=== PATIENT | female | born 1940 | race Caucasian/White ===

== ENCOUNTER 2025-02-13 09:32 | Outpatient (AMB) | payer OTHER, SELFPAY ==
--- NOTE | 2025-02-13 09:33 | A.OFFVIS_ITS ---
Vital Signs 02/13/25 09:47 Height 5 ft 1 in Weight 148 lb BMI 28.0 BP 124/76 Blood Pressure Location Rt brachial Position Sitting Respiration 16 Pulse 96 Pulse Source Pulse Oximeter Pulse Oximetry (%) 96 Intake Visit Reasons: LE weakness Dermatology Sales Representative Required: No Accompanied by: Daughter Allergies No Known Allergies Allergy (Verified 02/13/25 09:48) Medication List - Last Reconciled 02/13/25 by Ruthann Grayson CNP atorvastatin 20 mg PO DAILY hydrochlorothiazide 12.5 mg PO DAILY levothyroxine 112 mcg PO DAILY lisinopril 2.5 mg PO DAILY metoprolol succinate ER 25 mg PO DAILY HPI Comments Details: Elana is an 85-year-old female patient with past medical history of hypertension, hyperlipidemia, hypothyroidism presenting upon referral for weakness. According to referral notes from November of 2024, she had sustained a mechanical fall at home after which she was admitted to [facility]. She has been walking to the bathroom when her left leg ?gave out on her? and she fell landing on her buttocks. Left knee and hip x-rays have been negative for acute injury but reveal some mild underlying osteoarthritic changes. Unfortunately after hospitalization and subsequent rehabilitation, she had 2 further falls in September of 2024 and was admitted back to [facility] rehab [facility] nursing [facility]. The primary concern for the provider referring this patient seems to be a lack in progression even after rehab to the weakness of her left lower extremity. According to the patient and her daughter today, she continues to have some difficulty with ADLs secondary to her ongoing weakness. While the patient does feel that she has made some progress in her strength, her daughter feels as though her strength has not improved much if at all in her physical therapy team also has some concerns about her steady lack of improvement. She does tell me that in the past she has had a left lower back injury that caused some left lower back/left hip pain. She feels that her left lower extremity has always been slightly more fatigued. She notes that leading up to her initial fall back in the spring, she has been having some difficulty with balance for years. In addition to the weakness, the patient does endorse some difficulties with sensation and does note that after her 3rd fall which led her to her most recent hospitalization, she did have some sensory loss to both feet. She does feel that some of her sensation has returned since this time. 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 Likely physiologic calcifications in the bilateral basal ganglia again seen. No other areas of abnormal parenchymal attenuation or space- occupying lesions (report reviewed only, imaging not available). CT cervical spine 10/13/2024: No evidence of acute bony injuries in the cervical spine. Multilevel degenerative changes in the cervical spine with bilateral neural foraminal narrowing at C4 through 5 and C5 through 6 and moderate central canal stenosis at C4 through C5. [facility] Medical History (Updated 02/13/25 @ 10:40 by Ruthann Grayson CNP) Weakness Difficulty walking Muscle weakness Osteoarthritis Heart failure Hearing loss HLD (hyperlipidemia) Hypothyroidism Lack of coordination Review of Systems Const All systems reviewed & are unremarkable except as noted in HPI and below Neuro Denies Abnormal speech present Physical Exam Const General: cooperative, healthy appearing and no acute distress Orientation/consciousness: oriented to person, oriented to place and oriented to time Neuro General: oriented to person, oriented to place, oriented to time and Unable to assess gait Cranial nerves: Yes CN's II-XII intact bilaterally, Yes Bilaterally intact EOM present and Yes Midline tongue present Speech: No Abnormal speech present Gait exam (Neuro): Unable to assess gait Motor exam (neuro): Abnormal motor strength present (Left bicept -5/5, Left hip, knee, and ankle flexion -4/5) and Other motor observations present Sensory Exam: sensory level loss detected (BLE from mid villarreal down L>R. RUE c8 dermatome ) Deep tendon reflexes (DTR's): Right triceps reflex intensity grade: 2+, Rt Biceps (C5, C6): 2+, Left biceps reflex intensity grade: 2+, Right brachioradialis reflex intensity grade: 2+, Left brachioradialis reflex intensity grade: 2+, Right patellar reflex intensity grade: 3+, Left patellar reflex intensity grade: 3+ and Right ankle reflex intensity grade: 3+ Plantar Reflex Responses: upgoing (positive Babinski): bilateral Coordination: [id number] test normal Assessment & Plan Assessment & Plan (1) Weakness: Code(s): R53.1 - Weakness Category: Medical Plan: . (2) Imbalance: Code(s): R26.89 - Other abnormalities of gait and mobility Category: Medical Plan: . (3) Gait disturbance: Code(s): R26.9 - Unspecified abnormalities of gait and mobility Category: Medical Plan: . Danni Huitron is an 85-year-old female patient with past medical history of hypertension, hyperlipidemia, hypothyroidism presenting upon referral for weakness. Her exam is notable for predominantly left-sided weakness but more pronounced to the left lower extremity than the left upper extremity. She has sensory loss in bilateral lower extremities more pronounced distally. She also has right C8 dermatomal pattern sensory loss. She has no sensory deficit to the face or weakness in the facial area. Cranial nerves are intact. Her reflexes are normal to the upper extremities and brisk in the lower extremities including a bilateral positive Babinski. Her CT of the brain from September showed some chronic lacunar infarcts in the thalamus however otherwise did not show any major territory infarcts. She also had a CT of the cervical spine showing some degenerative changes with possible central canal stenosis. I would like to rule out a cervical myelopathy with a C-spine MRI. Pending results, we could consider other testing such as an EMG study. We will follow up after the cervical spine MRI and make further decisions regarding additional workup if indicated. -c-spine MRI w/o contrast -follow-up after imaging in 1 month Orders: Orders MR cervical spine wo con Today R26.89 - Other abnormalities of gait and mobility, R26.9 - Unspecified abnormalities of gait and mobility, R53.1 - Weakness Coding Level of Care Code New Pt Level 4 (96497) Diagnoses Weakness R53.1 Imbalance R26.89 Gait disturbance R26.9
[2025-02-13 09:47] VITALS: BP 124/76; PULSE 96; RESP 16; O2SAT 96; BMI 28.0
--- OUTSIDE RECORDS SUMMARY | 2025-02-13 10:55 | XMS_ITS | Clinical Summary ---
Author Organization [address] [facility] Address [address] [place] [address] Phone Care Team Providers Care Postdoctoral Scientist Name Role Phone Elder, Aileen Guillory MD Primary Care Provider + Encounters Date Type Department Care Team Description 02/08/2025 Lab Requisition [facility] Lab [address] [place] [phone] Robert Reddy MD Essential (primary) hypertension; Unspecified systolic (congestive) heart failure (CMS/HCC V24, CMS/HCC V28) 01/17/2025 Lab Requisition [facility] Lab [address] [place] [phone] Robert Reddy MD Urinary tract infection, site not specified 01/15/2025 Lab Requisition [facility] Lab [address] [place] [phone] Robert Reddy MD Anemia, unspecified; Other disorders of electrolyte and fluid balance, not elsewhere classified; Magnesium deficiency 01/09/2025 Lab Requisition [facility] Lab [address] [place] [phone] Robert Reddy MD Vitamin D deficiency, unspecified 12/11/2024 Lab Requisition [facility] [address] [place] [phone] Robert Reddy MD Vitamin D deficiency, unspecified; Weakness; Fall on same level from slipping, tripping and stumbling without subsequent striking against object, initial encounter from Last 3 Months Social History Tobacco Use Types Packs/Day Years Used Date Smoking Tobacco: Never Assessed Comments Unknown Sex and Gender Information Value Date Recorded Sex Assigned at Not on file Legal Sex Female 8:20 AM EDT Gender Identity Not on file Sexual Orientation Not on file Plan of Treatment Health Maintenance Due Date Last Done Comments DTaP,Tdap,and Td Vaccines (1 - Tdap) 01/23/1959 Pneumococcal Vaccine: 50+ Years (1 of 1 - PCV) 01/23/1990 Zoster Vaccines (1 of 2) 01/23/1990 RSV Immunization Adult Patients (1 - 1-dose 75+ series) 01/23/2015 Depression Screening 05/02/2024 Cholesterol Screening (Lipid Panel) 08/16/2024 Falls Risk Assessment 08/16/2024 Osteoporosis Screening (Bone Density Screening) 08/16/2024 Social Influencers of Health Screening 08/16/2024 COVID-19 Vaccine (1 - season) 2024 Influenza Vaccine (#1) 2024 Hypertension/CHF/CAD Annual BMP Blood Test 02/08/2026 02/08/2025, 01/15/2025, 12/11/2024, Additional history exists HIB Vaccines Aged Out No longer eligi ble based on patient's age to complete this topic HPV Vaccines Aged Out No longer eligi ble based on patient's age to complete this topic Hepatitis A Vaccines Aged Out No long er eligible based on patient's age to complete this topic Hepatitis B Vaccines Aged Out No long er eligible based on patient's age to complete this topic IPV Vaccines Aged Out No longer eligi ble based on patient's age to complete this topic MMR Vaccines Aged Out No longer eligi ble based on patient's age to complete this topic Meningococcal ACWY Vaccine Aged Out N o longer eligible based on patient's age to complete this topic Meningococcal B Vaccine Aged Out No l onger eligible based on patient's age to complete this topic RSV Immunization Patients Under 20 months Aged Out No longer eligible based on patient's age to complete this topic Varicella Vaccines Aged Out No longer eligible based on patient's age to complete this topic Procedures Procedure Name Priority Date/Time Associated Diagnosis Comments BASIC METABOLIC PANEL Routine 02/08/2025 5:12 AM EDT Essential (primary) hypertension Unspecified systolic (congestive) heart failure (CMS/HCC V24, CMS/HCC V28) COMPLETE BLOOD COUNT Routine 02/08/2025 5:12 AM EDT Essential (primary) hypertension Unspecified systolic (congestive) heart failure (CMS/[facility] V24, CMS/[facility] V28) URINALYSIS WITH REFLEX MICROSCOPIC Routine 01/16/2025 3:00 PM EDT Urinary tract infection, site not specified URINALYSIS WITH REFLEX MICROSCOPIC Routine 01/16/2025 3:00 PM EDT Urinary tract infection, site not specified CULTURE URINE Routine 01/16/2025 3:00 PM EDT Urinary tract infection, site not specified MAGNESIUM Routine 01/15/2025 7:56 AM EDT Anemia, unspecified Other disorders of electrolyte and fluid balance, not elsewhere classified Magnesium deficiency BASIC METABOLIC PANEL Routine 01/15/2025 7:56 AM EDT Anemia, unspecified Other disorders of electrolyte and fluid balance, not elsewhere classified Magnesium deficiency COMPLETE BLOOD COUNT Routine 01/15/2025 7:56 AM EDT Anemia, unspecified Other disorders of electrolyte and fluid balance, not elsewhere classified Magnesium deficiency VITAMIN D 25 HYDROXY Routine 01/09/2025 5:20 AM EDT Vitamin D deficiency, unspecified VITAMIN D 25 HYDROXY Routine 12/11/2024 8:17 AM EDT Vitamin D deficiency, unspecified Weakness Fall on same level from slipping, tripping and stumbling without subsequent striking against object, initial encounter VITAMIN B12 Routine 12/11/2024 8:17 AM EDT Vitamin D deficiency, unspecified Weakness Fall on same level from slipping, tripping and stumbling without subsequent striking against object, initial encounter BASIC METABOLIC PANEL Routine 12/11/2024 8:17 AM EDT Vitamin D deficiency, unspecified Weakness Fall on same level from slipping, tripping and stumbling without subsequent striking against object, initial encounter COMPLETE BLOOD COUNT Routine 12/11/2024 8:17 AM EDT Vitamin D deficiency, unspecified Weakness Fall on same level from slipping, tripping and stumbling without subsequent striking against object, initial encounter from Last 3 Months Results * (ABNORMAL) Complete blood count (02/08/2025 5:12 AM EDT) Only the most recent of3 resultswithin the time period is included. WBC 7.7 4.8 - 10.8 K/mcL LAB HEMETOLOGY METHOD 02/08/2025 8:49 AM [facility] RBC 3.80 3.80 - 4.80 M/mcL LAB HEMETOLOGY METHOD 02/08/2025 8:49 AM [facility] Hemoglobin 11.5 11.5 - 16.0 g/dL LAB HEMETOLOGY METHOD 02/08/2025 8:49 AM [facility] Hematocrit 36.6 35.0 - 47.0 % LAB HEMETOLOGY METHOD 02/08/2025 8:49 AM [facility] MCV 96.6 79.0 - 98.0 FL LAB HEMETOLOGY METHOD 02/08/2025 8:49 AM [facility] MCH 30.3 27.0 - 32.0 pcg LAB HEMETOLOGY METHOD 02/08/2025 8:49 AM [facility] MCHC 31.4(L) 32.0 - 37.0 g/dL LAB HEMETOLOGY METHOD 02/08/2025 8:49 AM [facility] RDW 13.7 11.0 - 15.0 % LAB HEMETOLOGY METHOD 02/08/2025 8:49 AM [facility] Platelets 339 130 - 400 K/mcL LAB HEMETOLOGY METHOD 02/08/2025 8:49 AM [facility] MPV 10.6 7.0 - 11.0 FL LAB HEMETOLOGY METHOD 02/08/2025 8:49 AM EDT [facility] NRBC 0.0 <1.0 % LAB HEMETOLOGY METHOD 02/08/2025 8:49 AM EDT [facility] NRBC Absolute 0.00 <0.10 K/mcL LAB HEMETOLOGY METHOD 02/08/2025 8:49 AM EDT [facility] Blood Venous blood specimen / Unknown Venipuncture / Unknown 02/08/2025 5:12 AM EDT 02/08/2025 8:27 AM EDT us Robert Reddy MD LAB BLOOD ORDERABLES Final Resu lt [facility] [address] [place] [address], [place] [phone] * (ABNORMAL) Basic metabolic panel (02/08/2025 5:12 AM EDT) Only the most recent of3 resultswithin the time period is included. Sodium 141 133 - 145 mmol/L LAB CHEMISTRY METHOD 02/08/2025 9:15 AM [facility] Potassium 5.2 3.5 - 5.5 mmol/L LAB CHEMISTRY METHOD 02/08/2025 9:15 AM [facility] Chloride 106 96 - 110 mmol/L LAB CHEMISTRY METHOD 02/08/2025 9:15 AM [facility] CO2 30 21 - 32 mmol/L LAB CHEMISTRY METHOD 02/08/2025 9:15 AM [facility] Anion Gap 5 3 - 11 LAB CHEMISTRY METHOD 02/08/2025 9:15 AM [facility] Glucose 93 70 - 100 mg/dL LAB CHEMISTRY METHOD 02/08/2025 9:15 AM [facility] BUN 17 5 - 25 mg/dL LAB CHEMISTRY METHOD 02/08/2025 9:15 AM EDT [facility] Creatinine 0.48(L) 0.50 - 1.10 mg/dL LAB CHEMISTRY METHOD 02/08/2025 9:15 AM [facility] eGFR 93 >=60 mL/min/1. 73m2 LAB CHEMISTRY METHOD 02/08/2025 9:15 AM [facility] Comment:Calculation based on the Chronic Kidney Disease Epidemiology Collaboration (CKD-EPI) equation refit without adjustment for race. BUN/Creatinine Ratio 35.4 LAB CHEMISTRY METHOD 02/08/2025 9:15 AM [facility] Calcium 9.2 8.5 - 10.5 mg/dL LAB CHEMISTRY METHOD 02/08/2025 9:15 AM [facility] Blood Venous blood specimen / Unknown Venipuncture / Unknown 02/08/2025 5:12 AM EDT 02/08/2025 8:27 AM EDT us Robert Reddy MD LAB BLOOD ORDERABLES Final Resu lt [facility] [address] [place] [address], * (ABNORMAL) Urinalysis with reflex microscopic (01/16/2025 3:00 PM EDT) Specific [place] Urine 1.018 1.003 - 1.030 LAB URINALYSIS - AUTOMATED METHOD 01/17/2025 9:15 AM [facility] pH, Urine 7.0 5.0 - 8.0 pH LAB URINALYSIS - AUTOMATED METHOD 01/17/2025 9:15 AM [facility] Leukocytes, Urine Trace(A) Negative LAB URINALYSIS - AUTOMATED METHOD 01/17/2025 9:15 AM [facility] Nitrite, Urine Negative Negative LAB URINALYSIS - AUTOMATED METHOD 01/17/2025 9:15 AM [facility] Protein, Urine Negative <=Trace mg/dL LAB URINALYSIS - AUTOMATED METHOD 01/17/2025 9:15 AM [facility] Glucose, Urine Negative Negative mg/dL LAB URINALYSIS - AUTOMATED METHOD 01/17/2025 9:15 AM [facility] Ketones, Urine Negative Negative mg/dL LAB URINALYSIS - AUTOMATED METHOD 01/17/2025 9:15 AM [facility] Urobilinogen, Urine 0.2 0.2 - 1.0 mg/dL LAB URINALYSIS - AUTOMATED METHOD 01/17/2025 9:15 AM [facility] Bilirubin, Urine Negative Negative LAB URINALYSIS - AUTOMATED METHOD 01/17/2025 9:15 AM [facility] Blood, Urine Negative Negative LAB URINALYSIS - AUTOMATED METHOD 01/17/2025 9:15 AM [facility] RBC, Urine 2.4 0 - 4 /HPF LAB URINALYSIS - AUTOMATED METHOD 01/17/2025 9:15 AM [facility] WBC, Urine 0.3 0 - 4 /HPF LAB URINALYSIS - AUTOMATED METHOD 01/17/2025 9:15 AM [facility] Squamous Epithelial, Urine 13 0 - 60 /LPF LAB URINALYSIS - AUTOMATED METHOD 01/17/2025 9:15 AM [facility] Bacteria, Urine Negative Negative /HPF LAB URINALYSIS - AUTOMATED METHOD 01/17/2025 9:15 AM [facility] Hyaline Casts, Urine 0.8 0 - 3 /LPF LAB URINALYSIS - AUTOMATED METHOD 01/17/2025 9:15 AM [facility] Urine Urinary bladder structure / Unknown Non-blood Collection / Unknown 01/16/2025 3:00 PM EDT 01/17/2025 8:21 AM EDT Robert Reddy MD LAB URINE ORDERABLES Final Resu lt Performing Organization Address [facility]/ZIP Co de Phone Number [facility] [address] [place] [address], [place] [phone] * (ABNORMAL) Culture urine (01/16/2025 3:00 PM EDT) Pathologist [facility] Culture, Urine <100 CFU/mL Gram Positive Cocci(A) 01/19/2025 12:37 PM EDT [facility] Urine Urinary bladder structure / Unknown Non-blood Collection / Unknown 01/16/2025 3:00 PM EDT 01/17/2025 8:21 AM EDT Robert Reddy MD LAB MICROBIOLOGY - GENERAL ORDE RABLES Final Result Performing Organization Address [facility]/ZIP Co de Phone Number [facility] [address] [place] [address], * Magnesium (01/15/2025 7:56 AM EDT) [facility] Magnesium 2.2 1.9 - 2.6 mg/dL LAB CHEMISTRY METHOD 01/15/2025 9:40 AM EDT [facility] Blood Venous blood specimen / Unknown Venipuncture / Unknown 01/15/2025 7:56 AM EDT 01/15/2025 8:53 AM EDT us Robert Reddy MD LAB BLOOD ORDERABLES Final Resu lt Performing Organization Address [facility]/ZIP Co de Phone Number [facility] [address] [place] [id number], * (ABNORMAL) Vitamin D 25 hydroxy (01/09/2025 5:20 AM EDT) Only the most recent of2 resultswithin the time period is included. [facility] Vit D, 25-Hydroxy 22.6(L) 30.0 - 80.0 ng/mL LAB CHEMISTRY METHOD 01/09/2025 9:12 AM EDT [facility] Blood Venous blood specimen / Unknown Venipuncture / Unknown 01/09/2025 5:20 AM EDT 01/09/2025 7:12 AM EDT Robert Reddy MD LAB BLOOD ORDERABLES Final Resu lt Performing Organization Address City/[facility]/ZIP Co de Phone Number [facility] [address] [place] [address], [place] [phone] * Vitamin B12 (12/11/2024 8:17 AM EDT) [facility] Vitamin B-12 284 250 - 900 pcg/mL LAB CHEMISTRY METHOD 12/11/2024 11:01 AM EDT [facility] Blood Venous blood specimen / Unknown Venipuncture / Unknown 12/11/2024 8:17 AM EDT 12/11/2024 9:10 AM EDT Robert Reddy MD LAB BLOOD ORDERABLES Final Resu lt Performing Organization Address City/[facility]/ZIP Co de Phone Number [facility] [address] [place] [address], [place] [phone] from Last 3 Months Insurance [facility] [employer] Care Teams Postdoctoral Scientist Relationship Specialty Start Date End Date Aileen Rubio MD [address] [place] [address] PCP - General Family Medicine 08/16/24
--- OUTSIDE RECORDS SUMMARY | 2025-02-13 10:55 | XMS_ITS | Encounter Summary ---
Author Organization [facility] Address [address] [place] [address] Care Team Providers Care Plumber Cub Name Role Phone Aileen Rubio MD Primary Care Provider + Encounter Details Date Type Department Care Team (Late st Contact Info) Description 09/01/2024 Lab Requisition [facility] - Main Lab 299 [facility] [place] [address] Aileen Rubio MD [address] [address] Rhabdomyolysis Social History Tobacco Use Types Packs/Day Years Used Date Smoking Tobacco: Never Assessed Comments Unknown Sex and Gender Information Value Date Recorded Sex Assigned at Not on file Legal Sex Female 8:20 AM EDT Gender Identity Not on file Sexual Orientation Not on file documented as of this encounter Plan of Treatment Not on file documented as of this encounter Procedures Procedure Name Priority Date/Time Associated Diagnosis Comments COMPLETE BLOOD COUNT Routine 09/03/2024 4:38 AM EDT Rhabdomyolysis BASIC METABOLIC PANEL Routine 09/03/2024 4:38 AM EDT Rhabdomyolysis documented in this encounter Results * Basic metabolic panel (09/03/2024 4:38 AM EDT) Sodium 142 133 - 145 mmol/L LAB CHEMISTRY METHOD 09/03/2024 10:17 AM EDT [facility] Potassium 5.4 3.5 - 5.5 mmol/L LAB CHEMISTRY METHOD 09/03/2024 10:17 AM T [facility] Chloride 109 96 - 110 mmol/L LAB CHEMISTRY METHOD 09/03/2024 10:17 AM [facility] CO2 29 21 - 32 mmol/L LAB CHEMISTRY METHOD 09/03/2024 10:17 AM [facility] Anion Gap 4 3 - 11 LAB CHEMISTRY METHOD 09/03/2024 10:17 AM [facility] Glucose 83 70 - 100 mg/dL LAB CHEMISTRY METHOD 09/03/2024 10:17 AM [facility] BUN 18 5 - 25 mg/dL LAB CHEMISTRY METHOD 09/03/2024 10:17 AM [facility] Creatinine 0.60 0.50 - 1.10 mg/dL LAB CHEMISTRY METHOD 09/03/2024 10:17 AM [facility] eGFR 89 >=60 mL/min/1. 73m2 LAB CHEMISTRY METHOD 09/03/2024 10:17 AM [facility] Comment:Calculation based on the Chronic Kidney Disease Epidemiology Collaboration (CKD-EPI) equation refit without adjustment for race. BUN/Creatinine Ratio 30.0 LAB CHEMISTRY METHOD 09/03/2024 10:17 AM [facility] Calcium 8.6 8.5 - 10.5 mg/dL LAB CHEMISTRY METHOD 09/03/2024 10:17 AM [facility] Blood Venous blood specimen / Unknown Venipuncture / Unknown 09/03/2024 4:38 AM EDT 09/03/2024 8:51 AM EDT us Aileen Rubio MD LAB BLOOD ORDERABLES Fin al Result [facility] [address] [place] [address], * (ABNORMAL) Complete blood count (09/03/2024 4:38 AM EDT) WBC 5.7 4.8 - 10.8 K/mcL LAB HEMETOLOGY METHOD 09/03/2024 9:48 AM [facility] RBC 3.50(L) 3.80 - 4.80 M/mcL LAB HEMETOLOGY METHOD 09/03/2024 9:48 AM [facility] Hemoglobin 10.7(L) 11.5 - 16.0 g/dL LAB HEMETOLOGY METHOD 09/03/2024 9:48 AM [facility] Hematocrit 35.2 35.0 - 47.0 % LAB HEMETOLOGY METHOD 09/03/2024 9:48 AM [facility] MCV 101.1(H) 79.0 - 98.0 FL LAB HEMETOLOGY METHOD 09/03/2024 9:48 AM [facility] MCH 30.7 27.0 - 32.0 pcg LAB HEMETOLOGY METHOD 09/03/2024 9:48 AM [facility] MCHC 30.4(L) 32.0 - 37.0 g/dL LAB HEMETOLOGY METHOD 09/03/2024 9:48 AM [facility] RDW 15.7(H) 11.0 - 15.0 % LAB HEMETOLOGY METHOD 09/03/2024 9:48 AM [facility] Platelets 336 130 - 400 K/mcL LAB HEMETOLOGY METHOD 09/03/2024 9:48 AM [facility] MPV 11.2(H) 7.0 - 11.0 FL LAB HEMETOLOGY METHOD 09/03/2024 9:48 AM [facility] NRBC 0.0 <1.0 % LAB HEMETOLOGY METHOD 09/03/2024 9:48 AM [facility] NRBC Absolute 0.00 <0.10 K/mcL LAB HEMETOLOGY METHOD 09/03/2024 9:48 AM [facility] Blood Venous blood specimen / Unknown Venipuncture / Unknown 09/03/2024 4:38 AM EDT 09/03/2024 8:51 AM EDT us Aileen Rubio MD LAB BLOOD ORDERABLES Fin al Result [facility] [address] [place] [address], documented in this encounter Visit Diagnoses Diagnosis Rhabdomyolysis documented in this encounter Care Teams Plumber Cub Relationship Specialty Start Date End Date Aileen Rubio MD [address] [address] PCP - General Family Medicine 08/16/24 documented as of this encounter
--- OUTSIDE RECORDS SUMMARY | 2025-02-13 10:55 | XMS_ITS | Encounter Summary ---
Author Organization [email or web address] Address [address] [place] [address] Care Team Providers Care Staff Anesthetist Name Role Phone Elder, Aileen Guillory MD Primary Care Provider + Encounter Details Date Type Department Care Team (Late st Contact Info) Description 09/22/2024 Lab Requisition [facility] - Main Lab 299 [facility] [place] [address] Robert Reddy MD [address] [place] [address] Urinary tract infection, site not specified Social History Tobacco Use Types Packs/Day Years [...] Procedure Name Priority Date/Time Associated Diagnosis Comments URINALYSIS WITH REFLEX MICROSCOPIC Routine 09/21/2024 10:00 AM EDT Urinary tract infection, site not specified URINALYSIS WITH REFLEX MICROSCOPIC Routine 09/21/2024 10:00 AM EDT Urinary tract infection, site not specified CULTURE URINE Routine 09/21/2024 10:00 AM EDT Urinary tract infection, site not specified documented in this encounter Results * (ABNORMAL) Urinalysis with reflex microscopic (09/21/2024 10:00 AM EDT) Specific Steele Urine 1.008 1.003 - 1.030 LAB URINALYSIS - AUTOMATED METHOD 09/22/2024 10:39 AM EDT [facility] pH, Urine 7.0 5.0 - 8.0 pH LAB URINALYSIS - AUTOMATED METHOD 09/22/2024 10:39 AM [facility] Leukocytes, Urine Small(A) Negative LAB URINALYSIS - AUTOMATED METHOD 09/22/2024 10:39 AM [facility] Nitrite, Urine Negative Negative LAB URINALYSIS - AUTOMATED METHOD 09/22/2024 10:39 AM [facility] Protein, Urine Negative <=Trace mg/dL LAB URINALYSIS - AUTOMATED METHOD 09/22/2024 10:39 AM [facility] Glucose, Urine Negative Negative mg/dL LAB URINALYSIS - AUTOMATED METHOD 09/22/2024 10:39 AM [facility] Ketones, Urine Negative Negative mg/dL LAB URINALYSIS - AUTOMATED METHOD 09/22/2024 10:39 AM [facility] Urobilinogen, Urine 0.2 0.2 - 1.0 mg/dL LAB URINALYSIS - AUTOMATED METHOD 09/22/2024 10:39 AM [facility] Bilirubin, Urine Negative Negative LAB URINALYSIS - AUTOMATED METHOD 09/22/2024 10:39 AM [facility] Blood, Urine Negative Negative LAB URINALYSIS - AUTOMATED METHOD 09/22/2024 10:39 AM [facility] RBC, Urine 2.0 0 - 4 /HPF LAB URINALYSIS - AUTOMATED METHOD 09/22/2024 10:39 AM [facility] WBC, Urine 1.5 0 - 4 /HPF LAB URINALYSIS - AUTOMATED METHOD 09/22/2024 10:39 AM [facility] Squamous Epithelial, Urine 8 0 - 60 /LPF LAB URINALYSIS - AUTOMATED METHOD 09/22/2024 10:39 AM [facility] Bacteria, Urine Negative Negative /HPF LAB URINALYSIS - AUTOMATED METHOD 09/22/2024 10:39 AM EDT [facility] Hyaline Casts, Urine 0.0 0 - 3 /LPF LAB URINALYSIS - AUTOMATED METHOD 09/22/2024 10:39 AM EDT [facility] Urine Urine specimen obtained by clean catch procedure / Unknown Non-blood Collection / Unknown 09/21/2024 10:00 AM EDT 09/22/2024 9:57 AM EDT us Robert Reddy MD LAB URINE ORDERABLES Final Resu lt Performing Organization Address [facility]/ZIP Co de Phone Number [facility] [address] [place] [address], [place] [phone] * Culture urine (09/21/2024 10:00 AM EDT) Culture, Urine <10,000 CFU/mL gram positive cocci, insignificant count, no further workup 09/23/2024 10:09 AM EDT [facility] Urine Urine specimen obtained by clean catch procedure / Unknown Non-blood Collection / Unknown 09/21/2024 10:00 AM EDT 09/22/2024 9:57 AM EDT us Robert Reddy MD LAB MICROBIOLOGY - GENERAL [facility] Final Result Performing Organization Address City/[facility]/ZIP Co de Phone Number [facility] [address] [place] [address], [place] [phone] documented in this encounter Visit Diagnoses Diagnosis Urinary tract infection, site not specified documented in this encounter Care Teams Staff Anesthetist Relationship Specialty Start Date End Date Ailene Rubio MD [address] [place] [address] PCP - General Family Medicine 08/16/24 documented as of this encounter
--- OUTSIDE RECORDS SUMMARY | 2025-02-13 10:55 | XMS_ITS | Encounter Summary ---
Author Organization [employer] [facility] Address [address] [place] [address] Care Team Providers Care Supervisor Painting Name Role Phone Aileen Rubio MD Primary Care Provider + Encounter Details Date Type Department Care Team (Late st Contact Info) Description 09/08/2024 Lab Requisition [facility] - Main Lab 299 [facility] [place] [address] Aileen Rubio MD [address] [address] Rhabdomyolysis Social History Tobacco Use Types Packs/Day [...] Associated Diagnosis Comments COMPLETE BLOOD COUNT Routine 09/10/2024 4:37 AM EDT Rhabdomyolysis BASIC METABOLIC PANEL Routine 09/10/2024 4:37 AM EDT Rhabdomyolysis documented in this encounter Results * Basic metabolic panel (09/10/2024 4:37 AM EDT) Sodium 139 133 - 145 mmol/L LAB CHEMISTRY METHOD 09/10/2024 8:49 AM EDT [facility] Potassium 5.1 3.5 - 5.5 mmol/L LAB CHEMISTRY METHOD 09/10/2024 8:49 AM EDT [facility] Chloride 107 96 - 110 mmol/L LAB CHEMISTRY METHOD 09/10/2024 8:49 AM [facility] CO2 29 21 - 32 mmol/L LAB CHEMISTRY METHOD 09/10/2024 8:49 AM [facility] Anion Gap 3 3 - 11 LAB CHEMISTRY METHOD 09/10/2024 8:49 AM [facility] Glucose 88 70 - 100 mg/dL LAB CHEMISTRY METHOD 09/10/2024 8:49 AM [facility] BUN 17 5 - 25 mg/dL LAB CHEMISTRY METHOD 09/10/2024 8:49 AM [facility] Creatinine 0.51 0.50 - 1.10 mg/dL LAB CHEMISTRY METHOD 09/10/2024 8:49 AM [facility] eGFR 92 >=60 mL/min/1. 73m2 LAB CHEMISTRY METHOD 09/10/2024 8:49 AM [facility] Comment:Calculation based on the Chronic Kidney Disease Epidemiology Collaboration (CKD-EPI) equation refit without adjustment for race. BUN/Creatinine Ratio 33.3 LAB CHEMISTRY METHOD 09/10/2024 8:49 AM [facility] Calcium 9.0 8.5 - 10.5 mg/dL LAB CHEMISTRY METHOD 09/10/2024 8:49 AM [facility] Blood Venous blood specimen / Unknown Venipuncture / Unknown 09/10/2024 4:37 AM EDT 09/10/2024 7:18 AM EDT us Aileen Rubio MD LAB BLOOD ORDERABLES Fin al Result [facility] [address] [place] [address], * (ABNORMAL) Complete blood count (09/10/2024 4:37 AM EDT) WBC 6.9 4.8 - 10.8 K/[facility] LAB HEMETOLOGY METHOD 09/10/2024 8:02 AM [facility] RBC 3.80 3.80 - 4.80 M/mcL LAB HEMETOLOGY METHOD 09/10/2024 8:02 AM [facility] Hemoglobin 11.7 11.5 - 16.0 g/dL LAB HEMETOLOGY METHOD 09/10/2024 8:02 AM [facility] Hematocrit 37.8 35.0 - 47.0 % LAB HEMETOLOGY METHOD 09/10/2024 8:02 AM [facility] MCV 100.5(H) 79.0 - 98.0 FL LAB HEMETOLOGY METHOD 09/10/2024 8:02 AM [facility] MCH 31.1 27.0 - 32.0 pcg LAB HEMETOLOGY METHOD 09/10/2024 8:02 AM [facility] MCHC 31.0(L) 32.0 - 37.0 g/dL LAB HEMETOLOGY METHOD 09/10/2024 8:02 AM [facility] RDW 15.5(H) 11.0 - 15.0 % LAB HEMETOLOGY METHOD 09/10/2024 8:02 AM [facility] Platelets 319 130 - 400 K/mcL LAB HEMETOLOGY METHOD 09/10/2024 8:02 AM [facility] MPV 11.1(H) 7.0 - 11.0 FL LAB HEMETOLOGY METHOD 09/10/2024 8:02 AM [facility] NRBC 0.0 <1.0 % LAB HEMETOLOGY METHOD 09/10/2024 8:02 AM [facility] NRBC Absolute 0.00 <0.10 K/mcL LAB HEMETOLOGY METHOD 09/10/2024 8:02 AM [facility] Blood Venous blood specimen / Unknown Venipuncture / Unknown 09/10/2024 4:37 AM EDT 09/10/2024 7:18 AM EDT us Aileen Rubio MD LAB BLOOD ORDERABLES Fin al Result [facility] ([facility]) [facility] [address] [place] [address], documented in this encounter Visit Diagnoses Diagnosis Rhabdomyolysis documented in this encounter Care Teams Supervisor Painting Relationship Specialty Start Date End Date Aileen Rubio MD [address] [address] PCP - General Family Medicine 08/16/24 documented as of this encounter
--- OUTSIDE RECORDS SUMMARY | 2025-02-13 10:55 | XMS_ITS | Encounter Summary ---
Author Organization [email or web address] Address [address] [place] [address] Care Team Providers Care Solar Field Service Technician Name Role Phone Elder, Aileen Guillory MD Primary Care Provider + Encounter Details Date Type Department Care Team (Late st Contact Info) Description 02/08/[address] [facility] - Main Lab 299 [facility] [place] [address] Robert Reddy MD [address] [place] [address] Essential (primary) hypertension; Unspecified systolic (congestive) heart failure (CMS/HCC V24, CMS/HCC V28) Social History Tobacco Use Types Packs/Day Years [...] Associated Diagnosis Comments COMPLETE BLOOD COUNT Routine 02/08/2025 5:12 AM EDT Essential (primary) hypertension Unspecified systolic (congestive) heart failure (CMS/HCC V24, CMS/HCC V28) BASIC METABOLIC PANEL Routine 02/08/2025 5:12 AM EDT Essential (primary) hypertension Unspecified systolic (congestive) heart failure (CMS/HCC V24, CMS/HCC V28) documented in this encounter Results * (ABNORMAL) Basic metabolic panel (02/08/2025 5:12 AM EDT) Sodium 141 133 - 145 mmol/L LAB CHEMISTRY METHOD [facility] Potassium 5.2 3.5 - 5.5 mmol/L [...] 9:15 AM [facility] Creatinine 0.48(L) 0.50 - [...] MD LAB BLOOD ORDERABLES Final Resu lt [facility] [address] [place] [address], [place] [phone] * (ABNORMAL) Complete blood count (02/08/2025 5:12 AM EDT) [facility] WBC 7.7 4.8 - 10.8 K/mcL LAB HEMETOLOGY METHOD 02/08/2025 8:49 [facility] RBC 3.80 3.80 - 4.80 M/mcL LAB HEMETOLOGY METHOD 02/08/2025 8:49 AM EDT [facility] Hemoglobin 11.5 11.5 - [...] % LAB HEMETOLOGY METHOD 02/08/2025 8:49 AM T [facility] Platelets 339 130 - 400 K/mcL LAB HEMETOLOGY METHOD 02/08/2025 8:49 AM [facility] MPV 10.6 7.0 - 11.0 FL LAB HEMETOLOGY METHOD 02/08/2025 8:49 AM [facility] NRBC 0.0 <1.0 % LAB HEMETOLOGY METHOD 02/08/2025 8:49 [facility] NRBC Absolute 0.00 <0.10 K/mcL LAB HEMETOLOGY METHOD 02/08/2025 8:49 AM EDT [facility] Blood Venous blood specimen / Unknown Venipuncture / Unknown 02/08/2025 5:12 AM EDT 02/08/2025 8:27 AM EDT us Robert Reddy MD LAB BLOOD ORDERABLES Final Resu lt [facility] [address] [place] [address], [place] [phone] documented in this encounter Visit Diagnoses Diagnosis Essential (primary) hypertension Unspecified essential hypertension Unspecified systolic (congestive) heart failure (CMS/HCC V24, CMS/HCC V28) documented in this encounter Care Teams Solar Field Service Technician Relationship Specialty Start Date End Date Aileen Rubio MD [address] [place] [address] PCP - General Family Medicine 08/16/24 documented as of this encounter
--- OUTSIDE RECORDS SUMMARY | 2025-02-13 10:55 | XMS_ITS | Encounter Summary ---
Author Organization [employer] Address [address] [place] [address] Care Team Providers Care Mechanical Research Engineer Name Role Phone Elder, Aileen Guillory MD Primary Care Provider + Encounter Details Date Type Department Care Team (Late st Contact Info) Description 10/04/2024 Lab Requisition [facility] - Main Lab 299 [facility] [place] [address] Robert Reddy MD [address] [place] [address] Anemia, unspecified; Other disorders of electrolyte and fluid balance, not elsewhere classified; Hypothyroidism, unspecified Social History Tobacco Use Types Packs/Day Years [...] Associated Diagnosis Comments COMPLETE BLOOD COUNT Routine 10/04/2024 7:33 AM EDT Anemia, unspecified Other disorders of electrolyte and fluid balance, not elsewhere classified Hypothyroidism, unspecified THYROID STIMULATING HORMONE Routine 10/04/2024 7:33 AM EDT Anemia, unspecified Other disorders of electrolyte and fluid balance, not elsewhere classified Hypothyroidism, unspecified BASIC METABOLIC PANEL Routine 10/04/2024 7:33 AM EDT Anemia, unspecified Other disorders of electrolyte and fluid balance, not elsewhere classified Hypothyroidism, unspecified documented in this encounter Results * Thyroid stimulating hormone (10/04/2024 7:33 AM EDT) TSH 1.62 0.40 - 4.00 mcIU/mL LAB CHEMISTRY METHOD 10/04/2024 11:26 AM [facility] Blood Venous blood specimen / Unknown Venipuncture / Unknown 10/04/2024 7:33 AM EDT 10/04/2024 9:26 AM EDT us Robert Reddy MD LAB BLOOD ORDERABLES Final Resu lt [facility] [address] [place] [address], [place] [phone] * Basic metabolic panel (10/04/2024 7:33 AM EDT) Sodium 140 133 - 145 mmol/L LAB CHEMISTRY METHOD 10/04/2024 10:51 AM [facility] Potassium 4.6 3.5 - 5.5 mmol/L LAB CHEMISTRY METHOD 10/04/2024 10:51 AM [facility] Chloride 104 96 - 110 mmol/L LAB CHEMISTRY METHOD 10/04/2024 10:51 AM [facility] CO2 29 21 - 32 mmol/L LAB CHEMISTRY METHOD 10/04/2024 10:51 AM [facility] Anion Gap 7 3 - 11 LAB CHEMISTRY METHOD 10/04/2024 10:51 AM [facility] Glucose 87 70 - 100 mg/dL LAB CHEMISTRY METHOD 10/04/2024 10:51 AM [facility] BUN 19 5 - 25 mg/dL LAB CHEMISTRY METHOD 10/04/2024 10:51 AM [facility] Creatinine 0.61 0.50 - 1.10 mg/dL LAB CHEMISTRY METHOD 10/04/2024 10:51 AM [facility] eGFR 88 >=60 mL/min/1. 73m2 LAB CHEMISTRY METHOD 10/04/2024 10:51 AM [facility] Comment:Calculation based on the Chronic Kidney Disease Epidemiology Collaboration (CKD-EPI) equation refit without adjustment for race. BUN/Creatinine Ratio 31.1 LAB CHEMISTRY METHOD 10/04/2024 10:51 AM EDT [facility] Calcium 8.6 8.5 - 10.5 mg/dL LAB CHEMISTRY METHOD 10/04/2024 10:51 AM T [facility] Blood Venous blood specimen / Unknown Venipuncture / Unknown 10/04/2024 7:33 AM EDT 10/04/2024 9:26 AM EDT us Robert Reddy MD LAB BLOOD ORDERABLES Final Resu lt [facility] [address] [place] [address], * (ABNORMAL) Complete blood count (10/04/2024 7:33 AM EDT) WBC 8.4 4.8 - 10.8 K/mcL LAB HEMETOLOGY METHOD 10/04/2024 10:31 AM [facility] RBC 3.60(L) 3.80 - 4.80 M/mcL LAB HEMETOLOGY METHOD 10/04/2024 10:31 AM [facility] Hemoglobin 11.4(L) 11.5 - 16.0 g/dL LAB HEMETOLOGY METHOD 10/04/2024 10:31 AM [facility] Hematocrit 36.1 35.0 - 47.0 % LAB HEMETOLOGY METHOD 10/04/2024 10:31 AM T [facility] MCV 99.4(H) 79.0 - 98.0 FL LAB HEMETOLOGY METHOD 10/04/2024 10:31 AM [facility] MCH 31.4 27.0 - 32.0 pcg LAB HEMETOLOGY METHOD 10/04/2024 10:31 AM EDT [facility] MCHC 31.6(L) 32.0 - 37.0 g/dL LAB HEMETOLOGY METHOD 10/04/2024 10:31 AM EDT [facility] RDW 14.6 11.0 - 15.0 % LAB HEMETOLOGY METHOD 10/04/2024 10:31 AM EDT [facility] Platelets 337 130 - 400 K/mcL LAB HEMETOLOGY METHOD 10/04/2024 10:31 AM EDT [facility] MPV 10.5 7.0 - 11.0 FL LAB HEMETOLOGY METHOD 10/04/2024 10:31 AM EDT [facility] NRBC 0.0 <1.0 % LAB HEMETOLOGY METHOD 10/04/2024 10:31 AM EDT [facility] NRBC Absolute 0.00 <0.10 K/mcL LAB HEMETOLOGY METHOD 10/04/2024 10:31 AM EDT [facility] Blood Venous blood specimen / Unknown Venipuncture / Unknown 10/04/2024 7:33 AM EDT 10/04/2024 9:26 AM EDT us Robert Reddy MD LAB BLOOD ORDERABLES Final Resu lt [facility] [address] [place] [address], documented in this encounter Visit Diagnoses Diagnosis Anemia, unspecified Other disorders of electrolyte and fluid balance, not elsewhere classified Hypothyroidism, unspecified documented in this encounter Care Teams Mechanical Research Engineer Relationship Specialty Start Date End Date Aileen Rubio MD [address] [place] [phone] PCP - General Family Medicine 08/16/24 documented as of this encounter
--- OUTSIDE RECORDS SUMMARY | 2025-02-13 10:55 | XMS_ITS | Encounter Summary ---
Author Organization [employer] Address [address] [place] [address] Care Team Providers Care Fuel Testing Technician Name Role Phone Aileen Rubio MD Primary Care Provider + Encounter Details Date Type Department Care Team (Late st Contact Info) Description 09/16/2024 Lab Requisition [facility] - Main Lab 299 [facility] [place] [address] Aileen Rubio MD [address] [address] Rhabdomyolysis Social History Tobacco Use Types Packs/Day Years Used Date Smoking Tobacco: Never Assessed Comments Unknown Sex and Gender Information Value Date Recorded Sex Assigned at Not on file Legal Sex Female 8:20 AM EDT Gender Identity Not on file Sexual Orientation Not on file documented as of this encounter Plan of Treatment Not on file documented as of this encounter Visit Diagnoses Diagnosis Rhabdomyolysis documented in this encounter Care Teams Fuel Testing Technician Relationship Specialty Start Date End Date Aielen Rubio MD [address] [address] PCP - General Family Medicine 08/16/24 documented as of this encounter
--- OUTSIDE RECORDS SUMMARY | 2025-02-13 10:55 | XMS_ITS | Encounter Summary ---
Author Organization [employer] Address [address] [place] [address] Care Team Providers Care Sodium Methylate Operator Name Role Phone Elder, Aileen Guillory MD Primary Care Provider + Encounter Details Date Type Department Care Team (Late st Contact Info) Description 12/11/[address] [facility] - Main Lab [address] [facility] [place] [address] Robert Reddy MD [address] [place] [id number] Vitamin D deficiency, unspecified; Weakness; Fall on same level from slipping, tripping and stumbling without subsequent striking against object, initial encounter Social History Tobacco Use Types Packs/Day Years [...] Procedure Name Priority Date/Time Associated Diagnosis Comments VITAMIN D 25 HYDROXY Routine 12/11/2024 8:17 [...] without subsequent striking against object, initial encounter documented in this encounter Results * (ABNORMAL) Vitamin D 25 hydroxy (12/11/2024 8:17 AM EDT) [facility] Vit D, 25-Hydroxy 12.4(L) 30.0 - 80.0 ng/mL LAB CHEMISTRY METHOD 12/11/2024 11:36 AM EDT [facility] Blood Venous blood specimen / Unknown Venipuncture / Unknown 12/11/2024 8:17 AM EDT 12/11/2024 9:10 AM EDT Robert Reddy MD LAB BLOOD ORDERABLES Final Resu lt Performing Organization Address [facility]/ZIP Co de Phone Number [facility] [address] [place] [address], [place] [phone] * Vitamin B12 (12/11/2024 8:17 AM EDT) [facility] Vitamin B-12 284 250 - 900 pcg/mL LAB CHEMISTRY METHOD 12/11/2024 11:01 AM EDT [facility] Blood Venous blood specimen / Unknown Venipuncture / Unknown 12/11/2024 8:17 AM EDT 12/11/2024 9:10 AM EDT us Robert Reddy MD LAB BLOOD ORDERABLES Final Resu lt Performing Organization Address City/[facility]/ZIP Co de Phone Number [facility] [address] [place] [address], [place] [phone] * (ABNORMAL) Basic metabolic panel (12/11/2024 8:17 AM EDT) [facility] Sodium 141 133 - 145 mmol/L LAB CHEMISTRY METHOD 12/11/2024 10:38 AM [facility] Potassium 4.8 3.5 - 5.5 mmol/L LAB CHEMISTRY METHOD 12/11/2024 10:38 AM [facility] Chloride 106 96 - 110 mmol/L LAB CHEMISTRY METHOD 12/11/2024 10:38 AM [facility] CO2 32 21 - 32 mmol/L LAB CHEMISTRY METHOD 12/11/2024 10:38 AM [facility] Anion Gap 3 3 - 11 LAB CHEMISTRY METHOD 12/11/2024 10:38 AM [facility] Glucose 109(H) 70 - 100 mg/dL LAB CHEMISTRY METHOD 12/11/2024 10:38 AM [facility] BUN 15 5 - 25 mg/dL LAB CHEMISTRY METHOD 12/11/2024 10:38 AM [facility] Creatinine 0.52 0.50 - 1.10 mg/dL LAB CHEMISTRY METHOD 12/11/2024 10:38 AM [facility] eGFR 92 >=60 mL/min/1. 73m2 LAB CHEMISTRY METHOD 12/11/2024 10:38 AM [facility] Comment:Calculation based on the Chronic Kidney Disease Epidemiology Collaboration (CKD-EPI) equation refit without adjustment for race. BUN/Creatinine Ratio 28.8 LAB CHEMISTRY METHOD 12/11/2024 10:38 AM [facility] Calcium 9.2 8.5 - 10.5 mg/dL LAB CHEMISTRY METHOD 12/11/2024 10:38 AM [facility] Blood Venous blood specimen / Unknown Venipuncture / Unknown 12/11/2024 8:17 AM EDT 12/11/2024 9:10 AM EDT us Robert Reddy MD LAB BLOOD ORDERABLES Final Resu lt [facility] [address] [place] [address], * (ABNORMAL) Complete blood count (12/11/2024 8:17 AM EDT) [facility] WBC 7.3 4.8 - 10.8 K/mcL LAB HEMETOLOGY METHOD 12/11/2024 10:19 AM [facility] RBC 4.10 3.80 - 4.80 M/mcL LAB HEMETOLOGY METHOD 12/11/2024 10:19 AM [facility] Hemoglobin 12.6 11.5 - 16.0 g/dL LAB HEMETOLOGY METHOD 12/11/2024 10:19 AM [facility] Hematocrit 39.6 35.0 - 47.0 % LAB HEMETOLOGY METHOD 12/11/2024 10:19 AM [facility] MCV 96.4 79.0 - 98.0 FL LAB HEMETOLOGY METHOD 12/11/2024 10:19 AM [facility] MCH 30.7 27.0 - 32.0 pcg LAB HEMETOLOGY METHOD 12/11/2024 10:19 AM [facility] MCHC 31.8(L) 32.0 - 37.0 g/dL LAB HEMETOLOGY METHOD 12/11/2024 10:19 AM [facility] RDW 13.3 11.0 - 15.0 % LAB HEMETOLOGY METHOD 12/11/2024 10:19 AM [facility] Platelets 339 130 - 400 K/mcL LAB HEMETOLOGY METHOD 12/11/2024 10:19 AM [facility] MPV 10.4 7.0 - 11.0 FL LAB HEMETOLOGY METHOD 12/11/2024 10:19 AM [facility] NRBC 0.0 <1.0 % LAB HEMETOLOGY METHOD 12/11/2024 10:19 AM EDT [facility] NRBC Absolute 0.00 <0.10 K/mcL LAB HEMETOLOGY METHOD 12/11/2024 10:19 AM EDT [facility] Blood Venous blood specimen / Unknown Venipuncture / Unknown 12/11/2024 8:17 AM EDT 12/11/2024 9:10 AM EDT us Robert Reddy MD LAB BLOOD ORDERABLES Final Resu lt [facility] [address] [place] [address], documented in this encounter Visit Diagnoses Diagnosis Vitamin D deficiency, unspecified Weakness Other malaise and fatigue Fall on same level from slipping, tripping and stumbling without subsequent striking against object, initial encounter documented in this encounter Care Teams Sodium Methylate Operator Relationship Specialty Start Date End Date Aileen Rubio MD [address] [place] [phone] PCP - General Family Medicine 08/16/24 documented as of this encounter
--- OUTSIDE RECORDS SUMMARY | 2025-02-13 10:55 | XMS_ITS | Encounter Summary ---
Author Organization [employer] [facility] Address [address] [place] [address] Care Team Providers Care Clinical Research Assistant Name Role Phone Aileen Rubio MD Primary Care Provider + Encounter Details Date Type Department Care Team (Late st Contact Info) Description 08/24/2024 Lab Requisition [facility] - Main Lab 299 [facility] [place] [address] Aileen Rubio MD [address] [address] Rhabdomyolysis Social History Tobacco Use Types Packs/Day [...] Associated Diagnosis Comments COMPLETE BLOOD COUNT Routine 08/27/2024 5:01 AM EDT Rhabdomyolysis BASIC METABOLIC PANEL Routine 08/27/2024 5:01 AM EDT Rhabdomyolysis documented in this encounter Results * Basic metabolic panel (08/27/2024 5:01 AM EDT) Sodium 139 133 - 145 mmol/L LAB CHEMISTRY METHOD 08/27/2024 2:33 PM EDT [facility] Potassium 5.5 3.5 - 5.5 mmol/L LAB CHEMISTRY METHOD 08/27/2024 2:33 PM EDT [facility] Chloride 107 96 - 110 mmol/L LAB CHEMISTRY METHOD 08/27/2024 2:33 PM EDT [facility] CO2 29 21 - 32 mmol/L LAB CHEMISTRY METHOD 08/27/2024 2:33 PM EDT [facility] Anion Gap 3 3 - 11 LAB CHEMISTRY METHOD 08/27/2024 2:33 PM EDT [facility] Glucose 86 70 - 100 mg/dL LAB CHEMISTRY METHOD 08/27/2024 2:33 PM T [facility] BUN 20 5 - 25 mg/dL LAB CHEMISTRY METHOD 08/27/2024 2:33 PM [facility] Creatinine 0.59 0.50 - 1.10 mg/dL LAB CHEMISTRY METHOD 08/27/2024 2:33 PM [facility] eGFR 89 >=60 mL/min/1. 73m2 LAB CHEMISTRY METHOD 08/27/2024 2:33 PM [facility] Comment:Calculation based on the Chronic Kidney Disease Epidemiology Collaboration (CKD-EPI) equation refit without adjustment for race. BUN/Creatinine Ratio 33.9 LAB CHEMISTRY METHOD 08/27/2024 2:33 PM [facility] Calcium 8.8 8.5 - 10.5 mg/dL LAB CHEMISTRY METHOD 08/27/2024 2:33 PM [facility] Blood Venous blood specimen / Unknown Venipuncture / Unknown 08/27/2024 5:01 AM EDT 08/27/2024 9:42 AM EDT us Aileen Rubio MD LAB BLOOD ORDERABLES Fin al Result [facility] [address] [place] [address], * (ABNORMAL) Complete blood count (08/27/2024 5:01 AM EDT) WBC 7.0 4.8 - 10.8 K/mcL LAB HEMETOLOGY METHOD 08/27/2024 10:25 AM [facility] RBC 3.40(L) 3.80 - 4.80 M/mcL LAB HEMETOLOGY METHOD 08/27/2024 10:25 AM [facility] Hemoglobin 10.7(L) 11.5 - 16.0 g/dL LAB HEMETOLOGY METHOD 08/27/2024 10:25 AM [facility] Hematocrit 34.7(L) 35.0 - 47.0 % LAB HEMETOLOGY METHOD 08/27/2024 10:25 AM [facility] MCV 101.2(H) 79.0 - 98.0 FL LAB HEMETOLOGY METHOD 08/27/2024 10:25 AM [facility] MCH 31.2 27.0 - 32.0 pcg LAB HEMETOLOGY METHOD 08/27/2024 10:25 AM [facility] MCHC 30.8(L) 32.0 - 37.0 g/dL LAB HEMETOLOGY METHOD 08/27/2024 10:25 AM [facility] RDW 15.3(H) 11.0 - 15.0 % LAB HEMETOLOGY METHOD 08/27/2024 10:25 AM [facility] Platelets 487(H) 130 - 400 K/mcL LAB HEMETOLOGY METHOD 08/27/2024 10:25 AM [facility] MPV 10.9 7.0 - 11.0 FL LAB HEMETOLOGY METHOD 08/27/2024 10:25 AM [facility] NRBC 0.0 <1.0 % LAB HEMETOLOGY METHOD 08/27/2024 10:25 AM [facility] NRBC Absolute 0.00 <0.10 K/mcL LAB HEMETOLOGY METHOD 08/27/2024 10:25 AM [facility] Blood Venous blood specimen / Unknown Venipuncture / Unknown 08/27/2024 5:01 AM EDT 08/27/2024 9:42 AM EDT us Aileen Rubio MD LAB BLOOD ORDERABLES Fin al Result [facility] [address] [place] [address], documented in this encounter Visit Diagnoses Diagnosis Rhabdomyolysis documented in this encounter Care Teams Clinical Research Assistant Relationship Specialty Start Date End Date Aileen Rubio MD [address] [place] [phone] PCP - General Family Medicine 08/16/24 documented as of this encounter
--- OUTSIDE RECORDS SUMMARY | 2025-02-13 10:55 | XMS_ITS | Encounter Summary ---
Author Organization [employer] Address [address] [place] [address] Care Team Providers Care Sand Analyst Name Role Phone Elder, Aileen Guillory MD Primary Care Provider + Encounter Details Date Type Department Care Team (Late st Contact Info) Description 01/17/2025 Lab Requisition [facility] - Main Lab 299 [facility] [employer] [place] [address] Robert Reddy MD [address] [place] [id number] Urinary tract infection, site not specified Social [...] Diagnosis Comments URINALYSIS WITH REFLEX MICROSCOPIC Routine 01/16/2025 3:00 PM EDT Urinary tract infection, site not specified URINALYSIS WITH REFLEX MICROSCOPIC Routine 01/16/2025 3:00 PM EDT Urinary tract infection, site not specified CULTURE URINE Routine 01/16/2025 3:00 PM EDT Urinary tract infection, site not specified documented in this encounter Results * (ABNORMAL) Urinalysis with reflex microscopic (01/16/2025 3:00 PM EDT) Specific [place] Urine 1.018 1.003 - 1.030 LAB URINALYSIS - AUTOMATED METHOD 01/17/2025 9:15 AM EDT [facility] pH, Urine 7.0 5.0 - 8.0 pH LAB URINALYSIS - AUTOMATED METHOD 01/17/2025 9:15 AM [facility] Leukocytes, Urine Trace(A) Negative LAB URINALYSIS - AUTOMATED METHOD 01/17/2025 9:15 AM [facility] Nitrite, Urine Negative Negative LAB URINALYSIS - AUTOMATED METHOD 01/17/2025 9:15 AM [facility] Protein, Urine Negative <=Trace mg/dL LAB URINALYSIS - AUTOMATED METHOD 01/17/2025 9:15 AM [facility] Glucose, Urine Negative Negative mg/dL LAB URINALYSIS - AUTOMATED METHOD 01/17/2025 9:15 AM [facility] Ketones, Urine Negative Negative mg/dL LAB URINALYSIS - AUTOMATED METHOD 01/17/2025 9:15 AM [facility] Urobilinogen, Urine 0.2 0.2 - 1.0 mg/dL LAB URINALYSIS - AUTOMATED METHOD 01/17/2025 9:15 AM [facility] Bilirubin, Urine Negative Negative LAB URINALYSIS - AUTOMATED METHOD 01/17/2025 9:15 AM [facility] Blood, Urine Negative Negative LAB URINALYSIS - AUTOMATED METHOD 01/17/2025 9:15 AM [facility] RBC, Urine 2.4 0 - 4 /HPF LAB URINALYSIS - AUTOMATED METHOD 01/17/2025 9:15 AM [facility] WBC, Urine 0.3 0 - 4 /HPF LAB URINALYSIS - AUTOMATED METHOD 01/17/2025 9:15 AM [facility] Squamous Epithelial, Urine 13 0 - 60 /LPF LAB URINALYSIS - AUTOMATED METHOD 01/17/2025 9:15 AM [facility] Bacteria, Urine Negative Negative /HPF LAB URINALYSIS - AUTOMATED METHOD 01/17/2025 9:15 AM EDT [facility] Hyaline Casts, Urine 0.8 0 - 3 /LPF LAB URINALYSIS - AUTOMATED METHOD 01/17/2025 9:15 AM EDT [facility] Urine Urinary bladder structure / Unknown Non-blood Collection / Unknown 01/16/2025 3:00 PM EDT 01/17/2025 8:21 AM EDT us Robert Reddy MD LAB URINE ORDERABLES Final Resu lt Performing Organization Address [facility]/ZIP Co de Phone Number [facility] [address] [place] [address], [place] [phone] * (ABNORMAL) Culture urine (01/16/2025 3:00 PM EDT) Culture, Urine <100 CFU/mL Gram Positive Cocci(A) 01/19/2025 12:37 PM EDT [facility] Urine Urinary bladder structure / Unknown Non-blood Collection / Unknown 01/16/2025 3:00 PM EDT 01/17/2025 8:21 AM EDT us Robert Reddy MD LAB [facility] Final Result Performing Organization Address [facility]/ZIP Co de Phone Number [facility] [address] [place] [address], [place] [phone] documented in this encounter Visit Diagnoses Diagnosis Urinary tract infection, site not specified documented in this encounter Care Teams Sand Analyst Relationship Specialty Start Date End Date Aileen Rubio MD [address] [place] [phone] PCP - General Family Medicine 08/16/24 documented as of this encounter
--- OUTSIDE RECORDS SUMMARY | 2025-02-13 10:55 | XMS_ITS | Encounter Summary ---
Author Organization [employer] Address [address] [place] [address] Care Team Providers Care Program Schedule Clerk Name Role Phone Elder, Aileen Guillory MD Primary Care Provider + Encounter Details Date Type Department Care Team (Late st Contact Info) Description 09/19/2024 Lab Requisition [facility] - Main Lab 299 [facility] [place] [address] Robert Reddy MD [address] [place] [id number] Anemia, unspecified; Other disorders of electrolyte and [...] Associated Diagnosis Comments COMPLETE BLOOD COUNT Routine 09/19/2024 7:00 AM EDT Anemia, unspecified Other disorders of electrolyte and fluid balance, not elsewhere classified Hypothyroidism, unspecified THYROID STIMULATING HORMONE Routine 09/19/2024 7:00 AM EDT Anemia, unspecified Other disorders of electrolyte and fluid balance, not elsewhere classified Hypothyroidism, unspecified COMPREHENSIVE METABOLIC PANEL Routine 09/19/2024 7:00 AM EDT Anemia, unspecified Other disorders of electrolyte and fluid balance, not elsewhere classified Hypothyroidism, unspecified documented in this encounter Results * (ABNORMAL) Thyroid stimulating hormone (09/19/2024 7:00 AM EDT) TSH 14.85(H) 0.40 - 4.00 mcIU/mL LAB CHEMISTRY METHOD 09/19/2024 11:41 AM [facility] Blood Venous blood specimen / Unknown Venipuncture / Unknown 09/19/2024 7:00 AM EDT 09/19/2024 9:01 AM EDT us Robert Reddy MD LAB BLOOD ORDERABLES Final Resu lt [facility] [address] [place] [address], [place] [phone] * Comprehensive metabolic panel (09/19/2024 7:00 AM EDT) [facility] Sodium 135 133 - 145 mmol/L LAB CHEMISTRY METHOD 09/19/2024 10:35 AM [facility] Potassium 4.9 3.5 - 5.5 mmol/L LAB CHEMISTRY METHOD 09/19/2024 10:35 AM [facility] Chloride 102 96 - 110 mmol/L LAB CHEMISTRY METHOD 09/19/2024 10:35 AM [facility] CO2 29 21 - 32 mmol/L LAB CHEMISTRY METHOD 09/19/2024 10:35 AM [facility] Anion Gap 4 3 - 11 LAB CHEMISTRY METHOD 09/19/2024 10:35 AM [facility] Glucose 89 70 - 100 mg/dL LAB CHEMISTRY METHOD 09/19/2024 10:35 AM [facility] BUN 21 5 - 25 mg/dL LAB CHEMISTRY METHOD 09/19/2024 10:35 AM [facility] Creatinine 0.64 0.50 - 1.10 mg/dL LAB CHEMISTRY METHOD 09/19/2024 10:35 AM [facility] eGFR 87 >=60 mL/min/1. 73m2 LAB CHEMISTRY METHOD 09/19/2024 10:35 AM EDT [facility] Comment:Calculation based on the Chronic Kidney Disease Epidemiology Collaboration (CKD-EPI) equation refit without adjustment for race. BUN/Creatinine Ratio 32.8 LAB CHEMISTRY METHOD 09/19/2024 10:35 AM [facility] Calcium 9.5 8.5 - 10.5 mg/dL LAB CHEMISTRY METHOD 09/19/2024 10:35 AM [facility] AST (SGOT) 13 10 - 42 unit/L LAB CHEMISTRY METHOD 09/19/2024 10:35 AM [facility] ALT (SGPT) 22 10 - 60 unit/L LAB CHEMISTRY METHOD 09/19/2024 10:35 AM [facility] Alkaline Phosphatase 70 42 - 121 unit/L LAB CHEMISTRY METHOD 09/19/2024 10:35 AM [facility] Total Protein 7.5 6.0 - 8.0 g/dL LAB CHEMISTRY METHOD 09/19/2024 10:35 AM [facility] Albumin 3.2 3.2 - 5.0 g/dL LAB CHEMISTRY METHOD 09/19/2024 10:35 AM [facility] Total Bilirubin 0.6 0.0 - 1.4 mg/dL LAB CHEMISTRY METHOD 09/19/2024 10:35 AM [facility] Blood Venous blood specimen / Unknown Venipuncture / Unknown 09/19/2024 7:00 AM EDT 09/19/2024 9:01 AM EDT us Robert Reddy MD LAB BLOOD ORDERABLES Final Resu lt [facility] [address] [place] [address], [place] [phone] * (ABNORMAL) Complete blood count (09/19/2024 7:00 AM EDT) WBC 7.0 4.8 - 10.8 K/[facility] LAB HEMETOLOGY METHOD 09/19/2024 9:57 AM [facility] RBC 3.80 3.80 - 4.80 M/[facility] LAB HEMETOLOGY METHOD 09/19/2024 9:57 AM [facility] Hemoglobin 11.7 11.5 - 16.0 g/dL LAB HEMETOLOGY METHOD 09/19/2024 9:57 AM [facility] Hematocrit 37.7 35.0 - 47.0 % LAB HEMETOLOGY METHOD 09/19/2024 9:57 AM [facility] MCV 98.7(H) 79.0 - 98.0 FL LAB HEMETOLOGY METHOD 09/19/2024 9:57 AM [facility] MCH 30.6 27.0 - 32.0 pcg LAB HEMETOLOGY METHOD 09/19/2024 9:57 AM [facility] MCHC 31.0(L) 32.0 - 37.0 g/dL LAB HEMETOLOGY METHOD 09/19/2024 9:57 AM [facility] RDW 14.7 11.0 - 15.0 % LAB HEMETOLOGY METHOD 09/19/2024 9:57 AM [facility] Platelets 372 130 - 400 K/mcL LAB HEMETOLOGY METHOD 09/19/2024 9:57 AM [facility] MPV 10.7 7.0 - 11.0 FL LAB HEMETOLOGY METHOD 09/19/2024 9:57 AM [facility] NRBC 0.0 <1.0 % LAB HEMETOLOGY METHOD 09/19/2024 9:57 AM [facility] NRBC Absolute 0.00 <0.10 K/[facility] LAB HEMETOLOGY METHOD 09/19/2024 9:57 AM [facility] Blood Venous blood specimen / Unknown Venipuncture / Unknown 09/19/2024 7:00 AM EDT 09/19/2024 9:01 AM EDT us Robert Reddy MD LAB BLOOD ORDERABLES Final Resu lt [facility] [address] [place] [address], documented in this encounter Visit Diagnoses Diagnosis Anemia, unspecified Other disorders of electrolyte and fluid balance, not elsewhere classified Hypothyroidism, unspecified documented in this encounter Care Teams Program Schedule Clerk Relationship Specialty Start Date End Date Aileen Rubio MD [address] [address] PCP - General Family Medicine 08/16/24 documented as of this encounter
--- OUTSIDE RECORDS SUMMARY | 2025-02-13 10:55 | XMS_ITS | Encounter Summary ---
Author Organization [employer] Address [address] [place] [address] Care Team Providers Care Rotary Rock Drilling Machine Operator Name Role Phone Elder, Aileen Guillory MD Primary Care Provider + Encounter Details Date Type Department Care Team (Late st Contact Info) Description 11/06/2024 Lab Requisition [facility] - Main Lab 299 [facility] [place] [address] Robert Reddy MD [address] [place] [address] Urinary tract infection, site not specified Social [...] Diagnosis Comments URINALYSIS WITH REFLEX MICROSCOPIC Routine 11/06/2024 12:00 AM EDT Urinary tract infection, site not specified URINALYSIS WITH REFLEX MICROSCOPIC Routine 11/06/2024 12:00 AM EDT Urinary tract infection, site not specified CULTURE URINE Routine 11/06/2024 12:00 AM EDT Urinary tract infection, site not specified documented in this encounter Results * (ABNORMAL) Urinalysis with reflex microscopic (11/06/2024 12:00 AM EDT) Specific [place] Urine 1.019 1.003 - 1.030 LAB URINALYSIS - AUTOMATED METHOD 11/06/2024 9:[address] [facility] pH, Urine 6.5 5.0 - 8.0 pH LAB URINALYSIS - AUTOMATED METHOD 11/06/2024 9:13 AM [facility] Leukocytes, Urine Small(A) Negative LAB URINALYSIS - AUTOMATED METHOD 11/06/2024 9:13 AM [facility] Nitrite, Urine Negative Negative LAB URINALYSIS - AUTOMATED METHOD 11/06/2024 9:13 AM [facility] Protein, Urine Negative <=Trace mg/dL LAB URINALYSIS - AUTOMATED METHOD 11/06/2024 9:13 AM [facility] Glucose, Urine Negative Negative mg/dL LAB URINALYSIS - AUTOMATED METHOD 11/06/2024 9:13 AM [facility] Ketones, Urine Negative Negative mg/dL LAB URINALYSIS - AUTOMATED METHOD 11/06/2024 9:13 AM [facility] Urobilinogen, Urine 0.2 0.2 - 1.0 mg/dL LAB URINALYSIS - AUTOMATED METHOD 11/06/2024 9:13 AM [facility] Bilirubin, Urine Negative Negative LAB URINALYSIS - AUTOMATED METHOD 11/06/2024 9:13 AM [facility] Blood, Urine Negative Negative LAB URINALYSIS - AUTOMATED METHOD 11/06/2024 9:13 AM [facility] RBC, Urine 5.0(H) 0 - 4 /HPF LAB URINALYSIS - AUTOMATED METHOD 11/06/2024 9:13 AM [facility] WBC, Urine 4.2(H) 0 - 4 /HPF LAB URINALYSIS - AUTOMATED METHOD 11/06/2024 9:13 AM [facility] Squamous Epithelial, Urine 34 0 - 60 /LPF LAB URINALYSIS - AUTOMATED METHOD 11/06/2024 9:13 AM [facility] Bacteria, Urine Negative Negative /HPF LAB URINALYSIS - AUTOMATED METHOD 11/06/2024 9:[address] [facility] Hyaline Casts, Urine 0.0 0 - 3 /LPF LAB URINALYSIS - AUTOMATED METHOD 11/06/2024 9:[address] [facility] Urine Urine specimen obtained by clean catch procedure / Unknown Non-blood Collection / Unknown 11/06/2024 11/06/2024 8:43 AM EDT us Robert Reddy MD LAB URINE ORDERABLES Final Resu lt Performing Organization Address [facility]/ZIP Co de Phone Number [facility] [address] [place] [address], [place] [phone] * Culture urine (11/06/2024 12:00 AM EDT) Culture, Urine 10,000-49,000 CFU/mL Mixed urogenital juhi, no uropathogens present. Suggest repeat specimen if clinically indicated. 11/07/2024 10:[address] [facility] Urine Urine specimen obtained by clean catch procedure / Unknown Non-blood Collection / Unknown 11/06/2024 11/06/2024 8:43 AM EDT us Robert Reddy MD LAB MICROBIOLOGY - [facility] Final Result Performing Organization Address City/[facility]/ZIP Co de Phone Number [facility] [address] [place] [address], [place] [phone] documented in this encounter Visit Diagnoses Diagnosis Urinary tract infection, site not specified documented in this encounter Care Teams Rotary Rock Drilling Machine Operator Relationship Specialty Start Date End Date Aileen Rubio MD [address] [place] [phone] PCP - General Family Medicine 08/16/24 documented as of this encounter
--- OUTSIDE RECORDS SUMMARY | 2025-02-13 10:55 | XMS_ITS | Encounter Summary ---
Author Organization [employer] Address [address] [place] [address] Care Team Providers Care Disintegrator Feeder Name Role Phone Elder, Aileen Guillory MD Primary Care Provider + Encounter Details Date Type Department Care Team (Late st Contact Info) Description 01/15/2025 Lab Requisition [facility] - Main Lab 299 [facility] [place] [address] Robert Reddy MD [address] [place] [id number] Anemia, unspecified; Other disorders of electrolyte and fluid balance, not elsewhere classified; Magnesium deficiency Social History Tobacco Use Types Packs/Day Years [...] Associated Diagnosis Comments COMPLETE BLOOD COUNT Routine 01/15/2025 7:56 AM EDT Anemia, unspecified Other disorders of electrolyte and fluid balance, not elsewhere classified Magnesium deficiency MAGNESIUM Routine 01/15/2025 7:56 AM EDT Anemia, unspecified Other disorders of electrolyte and fluid balance, not elsewhere classified Magnesium deficiency BASIC METABOLIC PANEL Routine 01/15/2025 7:56 AM EDT Anemia, unspecified Other disorders of electrolyte and fluid balance, not elsewhere classified Magnesium deficiency documented in this encounter Results * Magnesium (01/15/2025 7:56 AM EDT) Magnesium 2.2 1.9 - 2.6 mg/dL LAB CHEMISTRY METHOD 01/15/2025 9:40 AM [facility] Blood Venous blood specimen / Unknown Venipuncture / Unknown 01/15/2025 7:56 AM EDT 01/15/2025 8:53 AM EDT us Robert Reddy MD LAB BLOOD ORDERABLES Final Resu lt [facility] [address] [place] [address], [place] [phone] * (ABNORMAL) Basic metabolic panel (01/15/2025 7:56 AM EDT) Sodium 140 133 - 145 mmol/L LAB CHEMISTRY METHOD 01/15/2025 9:51 AM [facility] Potassium 4.9 3.5 - 5.5 mmol/L LAB CHEMISTRY METHOD 01/15/2025 9:51 AM [facility] Chloride 105 96 - 110 mmol/L LAB CHEMISTRY METHOD 01/15/2025 9:51 AM [facility] CO2 28 21 - 32 mmol/L LAB CHEMISTRY METHOD 01/15/2025 9:51 AM [facility] Anion Gap 7 3 - 11 LAB CHEMISTRY METHOD 01/15/2025 9:51 AM [facility] Glucose 86 70 - 100 mg/dL LAB CHEMISTRY METHOD 01/15/2025 9:51 AM [facility] BUN 18 5 - 25 mg/dL LAB CHEMISTRY METHOD 01/15/2025 9:51 AM [facility] Creatinine 0.47(L) 0.50 - 1.10 mg/dL LAB CHEMISTRY METHOD 01/15/2025 9:51 AM [facility] eGFR 94 >=60 mL/min/1. 73m2 LAB CHEMISTRY METHOD 01/15/2025 9:51 AM [facility] Comment:Calculation based on the Chronic Kidney Disease Epidemiology Collaboration (CKD-EPI) equation refit without adjustment for race. BUN/Creatinine Ratio 38.3 LAB CHEMISTRY METHOD 01/15/2025 9:51 AM T [facility] Calcium 9.4 8.5 - 10.5 mg/dL LAB CHEMISTRY METHOD 01/15/2025 9:51 AM T [facility] Blood Venous blood specimen / Unknown Venipuncture / Unknown 01/15/2025 7:56 AM EDT 01/15/2025 8:53 AM EDT us Robert Reddy MD LAB BLOOD ORDERABLES Final Resu lt [facility] [address] [place] [address], [place] [phone] * (ABNORMAL) Complete blood count (01/15/2025 7:56 AM EDT) WBC 8.9 4.8 - 10.8 K/mcL LAB HEMETOLOGY METHOD 01/15/2025 9:19 AM [facility] RBC 3.90 3.80 - 4.80 M/mcL LAB HEMETOLOGY METHOD 01/15/2025 9:19 AM [facility] Hemoglobin 11.8 11.5 - 16.0 g/dL LAB HEMETOLOGY METHOD 01/15/2025 9:19 AM [facility] Hematocrit 37.3 35.0 - 47.0 % LAB HEMETOLOGY METHOD 01/15/2025 9:19 AM [facility] MCV 96.6 79.0 - 98.0 FL LAB HEMETOLOGY METHOD 01/15/2025 9:19 AM [facility] MCH 30.6 27.0 - 32.0 pcg LAB HEMETOLOGY METHOD 01/15/2025 9:19 AM EDT [facility] MCHC 31.6(L) 32.0 - 37.0 g/dL LAB HEMETOLOGY METHOD 01/15/2025 9:19 AM EDT [facility] RDW 13.7 11.0 - 15.0 % LAB HEMETOLOGY METHOD 01/15/2025 9:19 AM EDT [facility] Platelets 316 130 - 400 K/mcL LAB HEMETOLOGY METHOD 01/15/2025 9:19 AM EDT [facility] MPV 11.1(H) 7.0 - 11.0 FL LAB HEMETOLOGY METHOD 01/15/2025 9:19 AM EDT [facility] NRBC 0.0 <1.0 % LAB [facility] 01/15/2025 9:19 AM EDT [facility] NRBC Absolute 0.00 <0.10 K/mcL [facility] 01/15/2025 9:19 AM EDT [facility] Blood Venous blood specimen / Unknown Venipuncture / Unknown 01/15/2025 7:56 AM EDT 01/15/2025 8:53 AM EDT us Robert Reddy MD LAB BLOOD ORDERABLES Final Resu lt [facility] [address] [place] [address], documented in this encounter Visit Diagnoses Diagnosis Anemia, unspecified Other disorders of electrolyte and fluid balance, not elsewhere classified Magnesium deficiency Disorders of magnesium metabolism documented in this encounter Care Teams Disintegrator Feeder Relationship Specialty Start Date End Date Aileen Rubio MD [address] [place] [phone] PCP - General Family Medicine 08/16/24 documented as of this encounter
--- OUTSIDE RECORDS SUMMARY | 2025-02-13 10:55 | XMS_ITS | Encounter Summary ---
Author Organization [employer] Address [address] [place] [address] Care Team Providers Care Emt Basic Name Role Phone Elder, Aileen Guillory MD Primary Care Provider + Encounter Details Date Type Department Care Team (Late st Contact Info) Description 10/24/[address] [facility] - Main Lab [address] [place] [address] Robert Reddy MD [address] [place] [address] Hypothyroidism, unspecified Social History Tobacco Use Types [...] Procedure Name Priority Date/Time Associated Diagnosis Comments THYROID STIMULATING HORMONE Routine 10/24/2024 7:13 AM EDT Hypothyroidism, unspecified THYROXINE FREE Routine 10/24/2024 7:13 AM EDT Hypothyroidism, unspecified documented in this encounter Results * Thyroid stimulating hormone (10/24/2024 7:13 AM EDT) TSH 1.46 0.40 - 4.00 mcIU/mL LAB CHEMISTRY METHOD 10/24/2024 1:16 PM EDT [facility] Blood Venous blood specimen / Unknown Venipuncture / Unknown 10/24/2024 7:13 AM EDT 10/24/2024 11:31 AM EDT Robert Reddy MD LAB BLOOD ORDERABLES Final Resu lt Performing Organization Address City/[facility]/ZIP Co de Phone Number [facility] [address] [place] [address], [place] [phone] * Thyroxine free (10/24/2024 7:13 AM EDT) Free T4 1.46 0.70 - 1.80 ng/dL LAB CHEMISTRY METHOD 10/24/2024 1:16 PM EDT [facility] Blood Venous blood specimen / Unknown Venipuncture / Unknown 10/24/2024 7:13 AM EDT 10/24/2024 11:31 AM EDT Robert Reddy MD LAB BLOOD ORDERABLES Final Resu lt Performing Organization Address [facility]/ZIP Co de Phone Number [facility] [address] [place] [address], [place] [phone] documented in this encounter Visit Diagnoses Diagnosis Hypothyroidism, unspecified documented in this encounter Care Teams Emt Basic Relationship Specialty Start Date End Date Aileen Rubio MD [address] [place] [phone] PCP - General Family Medicine 08/16/24 documented as of this encounter
--- OUTSIDE RECORDS SUMMARY | 2025-02-13 10:55 | XMS_ITS | Encounter Summary ---
Author Organization [facility] Address [address] [place] [address] Care Team Providers Care Cartridge Assembling Machine Adjuster Name Role Phone Aileen Rubio MD Primary Care Provider + Encounter Details Date Type Department Care Team (Late st Contact Info) Description 08/16/2024 Lab Requisition [facility] - Main Lab 299 [facility] [place] [address] Aileen Rubio MD [address] [id number] Essential (primary) hypertension; Hypothyroidism, unspecified; Rhabdomyolysis Social History Tobacco Use Types Packs/Day [...] Associated Diagnosis Comments COMPLETE BLOOD COUNT Routine 08/16/2024 5:57 AM EDT Essential (primary) hypertension Hypothyroidism, unspecified Rhabdomyolysis BASIC METABOLIC PANEL Routine 08/16/2024 5:57 AM EDT Essential (primary) hypertension Hypothyroidism, unspecified Rhabdomyolysis documented in this encounter Results * (ABNORMAL) Basic metabolic panel (08/16/2024 5:57 AM EDT) Sodium 141 133 - 145 mmol/L LAB CHEMISTRY METHOD 08/16/2024 9:26 AM EDT [facility] Potassium 4.2 3.5 - 5.5 mmol/L LAB CHEMISTRY METHOD 08/16/2024 9:26 AM [facility] Chloride 111(H) 96 - 110 mmol/L LAB CHEMISTRY METHOD 08/16/2024 9:26 AM [facility] CO2 25 21 - 32 mmol/L LAB CHEMISTRY METHOD 08/16/2024 9:26 AM [facility] Anion Gap 5 3 - 11 LAB CHEMISTRY METHOD 08/16/2024 9:26 AM [facility] Glucose 96 70 - 100 mg/dL LAB CHEMISTRY METHOD 08/16/2024 9:26 AM [facility] BUN 14 5 - 25 mg/dL LAB CHEMISTRY METHOD 08/16/2024 9:26 AM [facility] Creatinine 0.46(L) 0.50 - 1.10 mg/dL LAB CHEMISTRY METHOD 08/16/2024 9:26 AM [facility] eGFR 94 >=60 mL/min/1. 73m2 LAB CHEMISTRY METHOD 08/16/2024 9:26 AM [facility] Comment:Calculation based on the Chronic Kidney Disease Epidemiology Collaboration (CKD-EPI) equation refit without adjustment for race. BUN/Creatinine Ratio 30.4 LAB CHEMISTRY METHOD 08/16/2024 9:26 AM [facility] Calcium 8.6 8.5 - 10.5 mg/dL LAB CHEMISTRY METHOD 08/16/2024 9:26 AM [facility] Blood Venous blood specimen / Unknown Venipuncture / Unknown 08/16/2024 5:57 AM EDT 08/16/2024 8:23 AM EDT us Aileen Rubio MD LAB BLOOD ORDERABLES Fin al Result [facility] [address] [place] [address], * (ABNORMAL) Complete blood count (08/16/2024 5:57 AM EDT) [facility] WBC 8.9 4.8 - 10.8 K/mcL LAB HEMETOLOGY METHOD 08/16/2024 9:00 AM [facility] RBC 3.40(L) 3.80 - 4.80 M/mcL LAB HEMETOLOGY METHOD 08/16/2024 9:00 AM [facility] Hemoglobin 10.5(L) 11.5 - 16.0 g/dL LAB HEMETOLOGY METHOD 08/16/2024 9:00 AM [facility] Hematocrit 32.9(L) 35.0 - 47.0 % LAB HEMETOLOGY METHOD 08/16/2024 9:00 AM [facility] MCV 95.6 79.0 - 98.0 FL LAB HEMETOLOGY METHOD 08/16/2024 9:00 AM [facility] MCH 30.5 27.0 - 32.0 pcg LAB HEMETOLOGY METHOD 08/16/2024 9:00 AM [facility] MCHC 31.9(L) 32.0 - 37.0 g/dL LAB HEMETOLOGY METHOD 08/16/2024 9:00 AM [facility] RDW 13.6 11.0 - 15.0 % LAB HEMETOLOGY METHOD 08/16/2024 9:00 AM [facility] Platelets 316 130 - 400 K/mcL LAB HEMETOLOGY METHOD 08/16/2024 9:00 AM [facility] MPV 11.1(H) 7.0 - 11.0 FL LAB HEMETOLOGY METHOD 08/16/2024 9:00 AM [facility] NRBC 0.0 <1.0 % LAB HEMETOLOGY METHOD 08/16/2024 9:00 AM [facility] NRBC Absolute 0.00 <0.10 K/mcL LAB HEMETOLOGY METHOD 08/16/2024 9:[address] [facility] Blood Venous blood specimen / Unknown Venipuncture / Unknown 08/16/2024 5:57 AM EDT 08/16/2024 8:23 AM EDT us Aileen Ruboi MD LAB BLOOD ORDERABLES Fin al Result [facility] [address] [place] [address], documented in this encounter Visit Diagnoses Diagnosis Essential (primary) hypertension Unspecified essential hypertension Hypothyroidism, unspecified Rhabdomyolysis documented in this encounter Care Teams Cartridge Assembling Machine Adjuster Relationship Specialty Start Date End Date Aileen Rubio MD [address] [address] PCP - General Family Medicine 08/16/24 documented as of this encounter
--- OUTSIDE RECORDS SUMMARY | 2025-02-13 10:55 | XMS_ITS | Encounter Summary ---
Author Organization [facility] Address [address] [place] [address] Care Team Providers Care Film Library Clerk Name Role Phone Elder, Aileen Guillory MD Primary Care Provider + Encounter Details Date Type Department Care Team (Late st Contact Info) Description 01/09/2025 Lab Requisition [facility] - Main Lab [address] [place] [address] Robert Reddy MD [address] [place] [id number] Vitamin D deficiency, unspecified Social History Tobacco Use Types Packs/Day [...] Diagnosis Comments VITAMIN D 25 HYDROXY Routine 01/09/2025 5:20 AM EDT Vitamin D deficiency, unspecified documented in this encounter Results * (ABNORMAL) Vitamin D 25 hydroxy (01/09/2025 5:20 AM EDT) Vit D, 25-Hydroxy 22.6(L) 30.0 - 80.0 ng/mL LAB CHEMISTRY METHOD 01/09/2025 9:12 AM EDT [facility] ([facility] Blood Venous blood specimen / Unknown Venipuncture / Unknown 01/09/2025 5:20 AM EDT 01/09/2025 7:12 AM EDT us Robert Reddy MD LAB BLOOD ORDERABLES Final Resu lt [facility] [address] [place] [address], documented in this encounter Visit Diagnoses Diagnosis Vitamin D deficiency, unspecified documented in this encounter Care Teams Film Library Clerk Relationship Specialty Start Date End Date Aileen Rubio MD [address] [address] PCP - General Family Medicine 08/16/24 documented as of this encounter
--- OUTSIDE RECORDS SUMMARY | 2025-02-13 10:55 | XMS_ITS | Encounter Summary ---
Author Organization [facility] Address [address] [place] [address] Care Team Providers Care Guest Experience Manager Name Role Phone Aileen Rubio MD Primary Care Provider + Encounter Details Date Type Department Care Team (Late st Contact Info) Description 08/18/2024 Lab Requisition [facility] - Main Lab 299 [facility] [place] [address] Aileen Rubio MD [address] [address] Rhabdomyolysis Social History Tobacco Use Types Packs/Day [...] Associated Diagnosis Comments COMPLETE BLOOD COUNT Routine 08/20/2024 5:04 AM EDT Rhabdomyolysis CREATINE KINASE Routine 08/20/2024 5:04 AM EDT Rhabdomyolysis BASIC METABOLIC PANEL Routine 08/20/2024 5:04 AM EDT Rhabdomyolysis documented in this encounter Results * Creatine kinase (08/20/2024 5:04 AM EDT) Total CK 76 22 - 269 unit/L LAB CHEMISTRY METHOD 08/20/2024 12:25 PM EDT [facility] Blood Venous blood specimen / Unknown Venipuncture / Unknown 08/20/2024 5:04 AM EDT 08/20/2024 9:32 AM EDT us Aileen Rubio MD LAB BLOOD ORDERABLES Fin al Result [facility] [address] [place] [address], [place] [phone] * (ABNORMAL) Basic metabolic panel (08/20/2024 5:04 AM EDT) Sodium 143 133 - 145 mmol/L LAB CHEMISTRY METHOD 08/20/2024 12:24 PM [facility] Potassium 4.6 3.5 - 5.5 mmol/L LAB CHEMISTRY METHOD 08/20/2024 12:24 PM [facility] Chloride 110 96 - 110 mmol/L LAB CHEMISTRY METHOD 08/20/2024 12:24 PM [facility] CO2 26 21 - 32 mmol/L LAB CHEMISTRY METHOD 08/20/2024 12:24 PM [facility] Anion Gap 7 3 - 11 LAB CHEMISTRY METHOD 08/20/2024 12:24 PM [facility] Glucose 80 70 - 100 mg/dL LAB CHEMISTRY METHOD 08/20/2024 12:24 PM [facility] BUN 18 5 - 25 mg/dL LAB CHEMISTRY METHOD 08/20/2024 12:24 PM [facility] Creatinine 0.49(L) 0.50 - 1.10 mg/dL LAB CHEMISTRY METHOD 08/20/2024 12:24 PM [facility] eGFR 93 >=60 mL/min/1. 73m2 LAB CHEMISTRY METHOD 08/20/2024 12:24 PM [facility] Comment:Calculation based on the Chronic Kidney Disease Epidemiology Collaboration (CKD-EPI) equation refit without adjustment for race. BUN/Creatinine Ratio 36.7 LAB CHEMISTRY METHOD 08/20/2024 12:24 PM [facility] Calcium 8.5 8.5 - 10.5 mg/dL LAB CHEMISTRY METHOD 08/20/2024 12:24 PM EDT [facility] Blood Venous blood specimen / Unknown Venipuncture / Unknown 08/20/2024 5:04 AM EDT 08/20/2024 9:32 AM EDT us Aileen Rubio MD LAB BLOOD ORDERABLES Fin al Result [facility] [address] [place] [address], * (ABNORMAL) Complete blood count (08/20/2024 5:04 AM EDT) WBC 7.7 4.8 - 10.8 K/mcL LAB HEMETOLOGY METHOD 08/20/2024 11:37 AM [facility] RBC 3.10(L) 3.80 - 4.80 M/mcL LAB HEMETOLOGY METHOD 08/20/2024 11:37 AM [facility] Hemoglobin 9.6(L) 11.5 - 16.0 g/dL LAB HEMETOLOGY METHOD 08/20/2024 11:37 AM [facility] Hematocrit 30.4(L) 35.0 - 47.0 % LAB HEMETOLOGY METHOD 08/20/2024 11:37 AM [facility] MCV 96.8 79.0 - 98.0 FL LAB HEMETOLOGY METHOD 08/20/2024 11:37 AM [facility] MCH 30.6 27.0 - 32.0 pcg LAB HEMETOLOGY METHOD 08/20/2024 11:37 AM [facility] MCHC 31.6(L) 32.0 - 37.0 g/dL LAB HEMETOLOGY METHOD 08/20/2024 11:37 AM [facility] RDW 14.4 11.0 - 15.0 % LAB HEMETOLOGY METHOD 08/20/2024 11:37 AM EDT [facility] Platelets 383 130 - 400 K/mcL LAB HEMETOLOGY METHOD 08/20/2024 11:37 AM EDT [facility] MPV 11.0 7.0 - 11.0 FL LAB HEMETOLOGY METHOD 08/20/2024 11:37 AM EDT [facility] NRBC 0.0 <1.0 % LAB HEMETOLOGY METHOD 08/20/2024 11:37 AM EDT [facility] NRBC Absolute 0.00 <0.10 K/mcL LAB HEMETOLOGY METHOD 08/20/2024 11:37 AM EDT [facility] Blood Venous blood specimen / Unknown Venipuncture / Unknown 08/20/2024 5:04 AM EDT 08/20/2024 9:32 AM EDT us Aileen Rubio MD LAB BLOOD ORDERABLES Fin al Result [facility] [address] [place] [address], documented in this encounter Visit Diagnoses Diagnosis Rhabdomyolysis documented in this encounter Care Teams Guest Experience Manager Relationship Specialty Start Date End Date Aileen Rubio MD [address] [place] [id number] PCP - General Family Medicine 08/16/24 documented as of this encounter
== END 2025-02-13 10:47 | disposition home or self-care (01) ==
LOC: HO.HSM 09:33
PROVIDERS: PCP Hospitalist; Visit Provider Nurse Practitioner
DX: R53.1 Weakness (principal); R26.89 Other abnormalities of gait and mobility; R26.9 Unspecified abnormalities of gait and mobility
CPT/HCPCS: 99204